=== PATIENT | female | born 1990 | race Hispanic/Latino ===

== ENCOUNTER 2017-08-17 06:30 | Emergency (ER) | payer OTHER ==
--- NOTE | 2017-08-17 07:17 | ED PDOC ---
HPI: Skin/Bite Injury Time Seen by Provider: 08/17/17 07:05 Chief Complaint (Nursing): Abnormal Skin Integrity Chief Complaint (Provider): Rash History Per: Patient History/Exam Limitations: no limitations Onset/Duration Of Symptoms: Days Current Symptoms Are (Timing): Still Present Quality Of Symptoms: Itching Additional Complaint(s): 27 year old female with a past medical history of asthma presents to the ED for an evaluation of rash. Reports of itchy rash on face, neck, abdomen, and back onset today morning. Patient is unsure of the allergen. Denies shortness of breath or chest tightness. PMD: Dr. Araujo Past Medical History Reviewed: Historical Data, Nursing Documentation, Vital Signs Vital Signs: Last Vital Signs Temp 98.9 F 08/17/17 06:34 Pulse 92 H 08/17/17 06:34 Resp 16 08/17/17 06:34 BP 110/78 08/17/17 06:34 Pulse Ox 98 08/17/17 07:29 - Medical History PMH: Asthma, Gastritis, Hiatal Hernia, Mitral Valve Prolapse - Family History Family History: States: VT (father had VT and stents placed ) - Home Medications Home Medications: Ambulatory Orders Medication Instructions Recorded Cetirizine HCl [Zyrtec] 10 mg PO DAILY #10 capsule 08/17/17 Prednisone 50 mg PO DAILY #5 tab 08/17/17 - Allergies Allergies/Adverse Reactions: Allergies Allergy/AdvReac Type Severity Reaction Status Date / Time No Known Allergies Allergy Verified 12/12/15 23:20 Review of Systems ROS Statement: Except As Marked, All Systems Reviewed And Found Negative Cardiovascular: Negative for: Other (chest tightness) Respiratory: Negative for: Shortness of Breath Skin: Positive for: Rash (face, neck, abdomen and back) Physical Exam - Reviewed Nursing Documentation Reviewed: Yes Vital Signs Reviewed: Yes - Physical Exam Appears: Positive for: Non-toxic, No Acute Distress Head Exam: Positive for: ATRAUMATIC, NORMAL INSPECTION, NORMOCEPHALIC Skin: Positive for: Rash (hives on right side of abdomen, flank and right-side of neck ). Negative for: Normal Color (erythematous) Eye Exam: Positive for: Normal appearance ENT: Positive for: Normal ENT Inspection (no throat swelling or stridor) Cardiovascular/Chest: Positive for: Regular Rate, Rhythm. Negative for: Murmur Respiratory: Positive for: Normal Breath Sounds. Negative for: Wheezing, Respiratory Distress Neurologic/Psych: Positive for: Alert, Oriented (x3) - ECG O2 Sat by Pulse Oximetry: 98 (RA) Pulse Ox Interpretation: Normal Medical Decision Making Medical Decision Making: Time: 704 Initial Impression: rash Initial Plan: --Reevaluation Clinical Impression: allergic reaction Upon provider evaluation patient is medically stable, and requires no further treatment in the ED at this time. Patient will be discharged with Zyrtec 10mg and Prednisone 50mg for hives, skin rash. Counseling was provided and all questions were answered regarding diagnosis and need for follow up with Dr. Sarmiento. There is agreement to discharge plan. Return if symptoms persist or worsen. Scribe Attestation: Documented by Kaleigh Jerez, acting as a scribe for Camilo Meraz MD Provider Scribe Attestation: All medical record entries made by the Scribe were at my direction and personally dictated by me. I have reviewed the chart and agree that the record accurately reflects my personal performance of the history, physical exam, medical decision making, and the department course for this patient. I have also personally directed, reviewed, and agree with the discharge instructions and disposition. Disposition - Clinical Impression Clinical Impression: Allergic reaction - Patient ED Disposition Is Patient to be Admitted: No - Disposition Referrals: Bernardo Sarmiento MD [Staff Provider] - Disposition: Routine/Home Disposition Time: 07:15 Condition: FAIR Prescriptions: Cetirizine HCl [Zyrtec] 10 mg PO DAILY #10 capsule Prednisone 50 mg PO DAILY #5 tab Instructions: Hives, Skin Rash Forms: [employer] (Pashto)
[2017-08-17 08:02] VITALS: BP 118/76; PULSE 78; RESP 17; TEMP 98; O2SAT 100
== END 2017-08-17 08:01 | disposition home or self-care (01) ==
LOC: H.ER 06:30
DX: L50.9 Urticaria, unspecified (principal); J45.909 Unspecified asthma, uncomplicated